=== PATIENT | male | born 1960 | race Caucasian/White ===

== ENCOUNTER 2017-06-01 06:52 | Outpatient (CLI) | payer OTHER ==
[2017-06-01] VITALS (12 sets, daily range): BP systolic 117–145; BP diastolic 75–98; PULSE 67–96; TEMP 97.3
[~2017-06-01] VITALS: Ht 188 cm; Wt 141.8 kg
[2017-06-01 07:34] LABS: HEMATOCRIT 39.6 % (42.0-52.0); HEMOGLOBIN 13.1 g/dl (13.5-18.0); MEAN CELL VOLUME 93 fl (80.0-100.0); MEAN CORPUSCULAR HEMOGLOBIN 31 pg (27.0-31.0); MEAN CORPUSCULAR HGB CONC 33 g/dl (33.0-37.0); MEAN PLATELET VOLUME 11.9 fl (7.4-10.4); PLATELET COUNT 126 K/mm3 (130-400); RED BLOOD COUNT 4.27 M/mm3 (4.20-5.60); REDCELL DISTRIBUTION WIDTH-CV 13.7 % (11.5-14.5); WHITE BLOOD COUNT 5.9 K/mm3 (4.8-10.8)
[2017-06-01] MEDS ORDERED: PRINIVIL40 MG PO ×2 (07:37→07:38)
[2017-06-01 07:38] LABS: PROTHROMBIN TIME 10.8 SECONDS (9.7-12.8)
[2017-06-01] MEDS ORDERED: ASPIRIN 81M81 MG/TA2 PO (07:38)
[2017-06-01 07:39] LABS: CALCIUM 9.1 mg/dL (8.4-10.2); CREATININE, serum 0.96 mg/dL (0.66-1.25); POTASSIUM 4.3 mmol/L (3.4-5.0)
[2017-06-01] MEDS ORDERED: BYSTOLIC10 MG PO (07:42)
[2017-06-01] MEDS ORDERED: CLARITIN D TAB1 TAB PO (07:45)
[2017-06-01] MEDS ORDERED: OSTEO-BI-FLEX 21 TAB PO (07:47)
[2017-06-01] MEDS ORDERED: CINNAMON BARK PO (07:47)
== END 2017-06-01 09:35 | disposition home or self-care (01) ==
LOC: COL.RAD 06:52
PROVIDERS: Internal Medicine Interventional Cardiology
DX: I71.2 Thoracic aortic aneurysm, without rupture (principal); I10 Essential (primary) hypertension; M79.604 Pain in right leg; F17.200 Nicotine dependence, unspecified, uncomplicated; M79.605 Pain in left leg; Z82.49 Family history of ischemic heart disease and other diseases of the circulatory system
CPT/HCPCS: J2250; J3010

== ENCOUNTER → 2017-10-08 | Outpatient (REF) ==
[~2017-10-08] MED LIST: ASPIRIN 81M81 MG/TA2 PO; BYSTOLIC10 MG PO; CINNAMON BARK PO; CLARITIN D TAB1 TAB PO; OSTEO-BI-FLEX 21 TAB PO; PRINIVIL40 MG PO
== END ==
LOC: ZLAB.WCH 18:16
DX: Z01.89 Encounter for other specified special examinations (principal)

== ENCOUNTER → 2017-10-15 | Outpatient (REF) | LOC: ZLAB.WCH 18:41 | DX: Z01.89 Encounter for other specified special examinations (principal) ==

== ENCOUNTER → 2017-10-22 | Outpatient (REF) | LOC: ZLAB.WCH 18:05 | DX: Z01.89 Encounter for other specified special examinations (principal) ==

== ENCOUNTER → 2017-10-29 | Outpatient (REF) | LOC: ZLAB.WCH 18:10 | DX: Z01.89 Encounter for other specified special examinations (principal) ==

== ENCOUNTER → 2017-11-05 | Outpatient (REF) | LOC: ZLAB.WCH 18:25 | DX: Z01.89 Encounter for other specified special examinations (principal) ==

== ENCOUNTER → 2017-11-12 | Outpatient (REF) ==
[~2017-11-12] MED LIST changes: +CEPHALEXIN500 M1 PO; +CLARITIN-D 10 M1 T24 PO; +RIFADIN300 MG
== END ==
LOC: ZLAB.WCH 18:18
DX: Z01.89 Encounter for other specified special examinations (principal)

== ENCOUNTER 2017-11-20 15:00 | Outpatient (RCR) | payer OTHER ==
[~2017-11-20 15:00] MED LIST changes: -CEPHALEXIN500 M1 PO; -CLARITIN-D 10 M1 T24 PO; -RIFADIN300 MG
[2017-11-21] MEDS ORDERED: CEPHALEXIN500 M1 PO (20:11)
[2017-11-21] MEDS ORDERED: RIFADIN300 MG (20:11)
[2017-11-21] MEDS ORDERED: ASPIRIN 81M81 MG/TA2 PO (20:11)
[2017-11-21] MEDS ORDERED: PRINIVIL40 MG PO (20:11)
[2017-11-21] MEDS ORDERED: CLARITIN-D 10 M1 T24 PO (20:12)
[2017-11-21] MEDS ORDERED: BYSTOLIC10 MG PO (20:12)
== END 2017-12-24 ==
LOC: MKS.ESL.PT
DX: Z47.1 Aftercare following joint replacement surgery (principal); M17.0 Bilateral primary osteoarthritis of knee; Z96.652 Presence of left artificial knee joint

== ENCOUNTER 2017-11-21 19:42 | Emergency (ER) | payer OTHER ==
[~2017-11-21] VITALS: Ht 188 cm; Wt 145.5 kg
[~2017-11-21 19:42] MED LIST changes: -CEPHALEXIN500 M1 PO; -CLARITIN-D 10 M1 T24 PO; -RIFADIN300 MG
[2017-11-21 19:44] VITALS: TEMP 96.8
[2017-11-21] MEDS ORDERED: PRINIVIL40 MG PO (20:11)
[2017-11-21] MEDS ORDERED: RIFADIN300 MG (20:11)
[2017-11-21] MEDS ORDERED: CEPHALEXIN500 M1 PO (20:11)
[2017-11-21] MEDS ORDERED: ASPIRIN 81M81 MG/TA2 PO (20:11)
[2017-11-21] MEDS ORDERED: BYSTOLIC10 MG PO (20:12)
[2017-11-21] MEDS ORDERED: CLARITIN-D 10 M1 T24 PO (20:12)
[2017-11-21 20:28] LABS: BASO % 0.5 % (0.0-2.0); EOS # 0.2 (0.0-0.7); EOS % 2.5 % (0-4.0); GRAN # 5.7 (1.4-6.5); GRAN % 66.5 % (42.2-75.2); HEMATOCRIT 38.6 % (42.0-52.0); HEMOGLOBIN 12.6 g/dl (13.5-18.0); LYMPH # 2.1 (1.2-3.4); LYMPH % 24.6 % (20.0-51.0); MEAN CELL VOLUME 88 fl (80.0-100.0); MEAN CORPUSCULAR HEMOGLOBIN 29 pg (27.0-31.0); MEAN CORPUSCULAR HGB CONC 33 g/dl (33.0-37.0); MEAN PLATELET VOLUME 11.8 fl (7.4-10.4); MONO # 0.5 (0.1-0.6); MONO % 5.7 % (1.7-9.3); PLATELET COUNT 169 K/mm3 (130-400); RED BLOOD COUNT 4.38 M/mm3 (4.20-5.60); REDCELL DISTRIBUTION WIDTH-CV 15.1 % (11.5-14.5)
[2017-11-21 21:04] LABS: ALANINE AMINOTRANSFERASE 51 U/L (21-72); ALBUMIN 4.2 gm/dL (3.5-5.0); ALKALINE PHOSPHATASE 101 U/L (50-136); ANION GAP 12 mmol/L (7-16); AST,SGOT 26 U/L (15-37); BILIRUBIN,TOTAL 0.3 mg/dL (0.0-1.0); BLOOD UREA NITROGEN 18 mg/dL (9-20); CALCIUM 8.9 mg/dL (8.4-10.2); CARBON DIOXIDE 24 mmol/L (22-30); CHLORIDE 105 mmol/L (98-107); CREATININE, serum 0.98 mg/dL (0.66-1.25); GLUCOSE 197 mg/dL (74-106); SODIUM 141 mmol/L (137-145); TOTAL PROTEIN 7.9 gm/dL (6.4-8.2)
[2017-11-21 21:21] LABS: TROPONIN-I < 0.012 ng/mL (0.000-0.034)
[2017-11-21 23:15] VITALS: BP 177/105; PULSE 136
== END 2017-11-21 23:15 | disposition short-term general hospital (02) ==
LOC: COL.ER 19:42
PROVIDERS: Emergency Medicine
DX: I26.09 Other pulmonary embolism with acute cor pulmonale (principal); I48.91 Unspecified atrial fibrillation
CPT/HCPCS: J1644; J7050

== ENCOUNTER → 2017-11-21 | Outpatient (CLI) | payer OTHER ==
[~2017-11-21] MED LIST changes: +CEPHALEXIN500 M1 PO; +CLARITIN-D 10 M1 T24 PO; +RIFADIN300 MG
== END ==
LOC: COL.RAD 18:27
DX: I26.99 Other pulmonary embolism without acute cor pulmonale (principal)
CPT/HCPCS: Q9967

== ENCOUNTER 2018-05-02 14:15 | Outpatient (RCR) | payer OTHER ==
[~2018-05-02 14:15] MED LIST changes: +CEPHALEXIN500 M1 PO; +CLARITIN-D 10 M1 T24 PO; +RIFADIN300 MG
== END 2018-05-06 | disposition home or self-care (01) ==
LOC: MKS.ESL.PT
DX: Z47.1 Aftercare following joint replacement surgery (principal); Z96.652 Presence of left artificial knee joint; Z86.711 Personal history of pulmonary embolism; Z79.01 Long term (current) use of anticoagulants; Z79.82 Long term (current) use of aspirin; Z79.899 Other long term (current) drug therapy

== ENCOUNTER → 2018-05-24 | Outpatient (CLI) | payer OTHER | LOC: COL.RAD 08:32 | DX: Z09 Encounter for follow-up examination after completed treatment for conditions other than malignant neoplasm (principal); Z86.711 Personal history of pulmonary embolism | CPT/HCPCS: Q9967 ==

== ENCOUNTER 2018-08-01 14:00 | Outpatient (RCR) | payer OTHER | END 2018-08-06 | disposition home or self-care (01) | LOC: MKS.ESL.PT | DX: Z47.1 Aftercare following joint replacement surgery (principal); Z96.652 Presence of left artificial knee joint ==

== ENCOUNTER 2018-11-01 14:30 | Outpatient (RCR) | payer OTHER | END 2018-12-05 | disposition home or self-care (01) | LOC: MKS.ESL.PT | DX: Z47.1 Aftercare following joint replacement surgery (principal); Z96.651 Presence of right artificial knee joint; Z96.652 Presence of left artificial knee joint; Z87.39 Personal history of other diseases of the musculoskeletal system and connective tissue; Z86.711 Personal history of pulmonary embolism ==

== ENCOUNTER 2019-11-12 08:26 | Outpatient (RCR) | payer OTHER | END 2020-02-10 | LOC: MKS.ESL.PT | DX: I89.0 Lymphedema, not elsewhere classified (principal); M97.8XXD Periprosthetic fracture around other internal prosthetic joint, subsequent encounter; Z96.659 Presence of unspecified artificial knee joint; Z96.651 Presence of right artificial knee joint ==

== ENCOUNTER 2020-06-25 13:30 | Outpatient (RCR) | payer OTHER | END 2020-08-23 | disposition home or self-care (01) | LOC: WSOH | DX: Z48.02 Encounter for removal of sutures (principal); S71.112D Laceration without foreign body, left thigh, subsequent encounter; F17.210 Nicotine dependence, cigarettes, uncomplicated; E11.9 Type 2 diabetes mellitus without complications; M54.5 Low back pain; I10 Essential (primary) hypertension; Z94.5 Skin transplant status; Z98.890 Other specified postprocedural states; Z96.653 Presence of artificial knee joint, bilateral; Z95.5 Presence of coronary angioplasty implant and graft; Y99.0 Civilian activity done for income or pay ==

== ENCOUNTER 2020-10-07 12:12 | Day surgery (SDC) | payer OTHER ==
[~2020-10-07] VITALS: Ht 188 cm; Wt 161.9 kg
[2020-10-07] MEDS ORDERED: PACERONE400 MG PO (12:51)
[2020-10-07] MEDS ORDERED: LASIX 40MG TABL40 MG PO (12:51)
[2020-10-07 12:53] VITALS: BP 130/113; PULSE 117; TEMP 97.8
[2020-10-07] MEDS ORDERED: CEPHALEXIN500 M1 PO (13:35)
[2020-10-07] MEDS ORDERED: ZESTRIL40 MG PO (13:36)
[2020-10-07] MEDS ORDERED: APRESOLINE50 MG PO (13:36)
[2020-10-07] MEDS ORDERED: ZOLOFT 50MG50 MG PO (13:37)
[2020-10-07] MEDS ORDERED: CLARITIN-D 10 M1 T24 PO (13:37)
[2020-10-07] MEDS ORDERED: ELIQUIS 5MG PO (13:37)
[2020-10-07] MEDS ORDERED: TYLENOL 8 HR PO (13:38)
[2020-10-07] MEDS ORDERED: GLUCOPHAGE500 MG/TAB PO (13:38)
[2020-10-07 13:49] LABS: POTASSIUM 4.3 mmol/L (3.4-5.0)
[2020-10-07 13:59] LABS: INR 1.2 (0.8-3.0); PROTHROMBIN TIME 13.2 SECONDS (9.7-12.8)
[2020-10-07 14:23] LABS: THYROID STIMULATING HORMONE 8.66 uIU/mL (0.465-4.680)
[2020-10-07 16:35] VITALS: BP 95/66; PULSE 83
[2020-10-07 16:50] VITALS: BP 114/63; PULSE 84
[2020-10-07 17:05] VITALS: BP 102/80; PULSE 94
--- NOTE | 2020-10-07 17:13 | NUR ---
Pt tolerating PO without issue. Ambulates in room with steady gait. has been called, pt will be taken to her car by wheelchair when she arrives. INT DC'd with catheter intact, bleeding controlled at site.
--- NOTE | 2020-10-07 17:27 | NUR ---
Pt taken by WC to 's car with personal belongings.
== END 2020-10-07 17:29 | disposition home or self-care (01) ==
LOC: COL.CAR 12:12
PROVIDERS: Internal Medicine Interventional Cardiology
DX: I48.0 Paroxysmal atrial fibrillation (principal); I10 Essential (primary) hypertension; R60.0 Localized edema; E11.9 Type 2 diabetes mellitus without complications; F17.210 Nicotine dependence, cigarettes, uncomplicated; M19.90 Unspecified osteoarthritis, unspecified site; F41.9 Anxiety disorder, unspecified; Z86.711 Personal history of pulmonary embolism; Z79.01 Long term (current) use of anticoagulants; Z79.84 Long term (current) use of oral hypoglycemic drugs; Z88.0 Allergy status to penicillin; Z96.653 Presence of artificial knee joint, bilateral
CPT/HCPCS: J2704; J7030

== ENCOUNTER 2020-12-03 07:31 | Day surgery (SDC) | payer OTHER ==
[~2020-12-03] VITALS: Ht 188.1 cm; Wt 152.3 kg
[~2020-12-03 07:31] MED LIST changes: +APRESOLINE50 MG PO; +ELIQUIS 5MG PO; +GLUCOPHAGE500 MG/TAB PO; +LASIX 40MG TABL40 MG PO; +PACERONE200 MG PO; +TYLENOL 8 HR PO; +ZESTRIL40 MG PO; +ZOLOFT 50MG50 MG PO
[2020-12-03 08:28] VITALS: BP 102/81; PULSE 104; TEMP 97.8
[2020-12-03 08:39] LABS: POTASSIUM 4.6 mmol/L (3.4-5.0)
[2020-12-03 08:40] LABS: INR 1.2 (0.8-3.0); PROTHROMBIN TIME 13.5 SECONDS (9.7-12.8)
[2020-12-03 09:45] VITALS: BP 100/64; PULSE 79
[2020-12-03 10:00] VITALS: BP 118/90; PULSE 77
[2020-12-03 10:15] VITALS: BP 110/74; PULSE 78
[2020-12-03 10:30] VITALS: BP 108/82; PULSE 80
[2020-12-03 10:45] VITALS: BP 121/90; PULSE 76
--- NOTE | 2020-12-03 11:00 | NUR ---
DC instructions were reviewed with pt, he expressed understanding. He has tolereated PO fluids without issue. He ambulated through rowley to restroom with steady gait, stating shortness of breath with activity is now much improved. IV DC'd with catheter intact. Pt was taken to 's car by wheelchair.
== END 2020-12-03 11:57 | disposition home or self-care (01) ==
LOC: COL.CAR
PROVIDERS: Internal Medicine Interventional Cardiology
DX: I48.92 Unspecified atrial flutter (principal); I48.0 Paroxysmal atrial fibrillation; G47.30 Sleep apnea, unspecified; I10 Essential (primary) hypertension; R60.0 Localized edema; E11.9 Type 2 diabetes mellitus without complications; I26.99 Other pulmonary embolism without acute cor pulmonale; F19.10 Other psychoactive substance abuse, uncomplicated; Z87.798 Personal history of other (corrected) congenital malformations; Z80.9 Family history of malignant neoplasm, unspecified; Z88.0 Allergy status to penicillin; Z79.84 Long term (current) use of oral hypoglycemic drugs; Z79.899 Other long term (current) drug therapy; Z79.01 Long term (current) use of anticoagulants
CPT/HCPCS: J2704

== ENCOUNTER 2021-01-05 07:09 | Day surgery (SDC) | payer OTHER ==
[~2021-01-05] VITALS: Ht 188 cm; Wt 151.2 kg
[2021-01-05] VITALS (7 sets, daily range): BP systolic 101–137; BP diastolic 55–117; PULSE 79–123; TEMP 97.7
[2021-01-05 07:59] LABS: POTASSIUM 4.1 mmol/L (3.4-5.0)
[2021-01-05 08:00] LABS: INR 1.3 (0.8-3.0); PROTHROMBIN TIME 14.3 SECONDS (9.7-12.8)
[2021-01-05 08:34] LABS: THYROID STIMULATING HORMONE 3.84 uIU/mL (0.465-4.680)
[2021-01-05] MEDS ORDERED: LEVEMIR100 U/ML SQ (08:35)
--- NOTE | 2021-01-05 09:47 | NUR ---
Report from Jina Nguyen.
--- NOTE | 2021-01-05 11:09 | NUR ---
Discharge instructions given to pt.Pt verbalizes understanding.INT removed,catheter tip intact.Pt escorted out via wheelchair by this nurse.
== END 2021-01-05 11:15 | disposition home or self-care (01) ==
LOC: COL.CAR 07:09
PROVIDERS: Internal Medicine Cardiovascular Disease
DX: I48.0 Paroxysmal atrial fibrillation (principal); R60.0 Localized edema; I50.30 Unspecified diastolic (congestive) heart failure; I87.1 Compression of vein; I11.0 Hypertensive heart disease with heart failure; I26.99 Other pulmonary embolism without acute cor pulmonale; M19.90 Unspecified osteoarthritis, unspecified site; E11.9 Type 2 diabetes mellitus without complications; Z86.718 Personal history of other venous thrombosis and embolism; Z79.899 Other long term (current) drug therapy; Z79.01 Long term (current) use of anticoagulants; Z79.84 Long term (current) use of oral hypoglycemic drugs; Z96.651 Presence of right artificial knee joint; Z88.0 Allergy status to penicillin
CPT/HCPCS: J2704; J7030

== ENCOUNTER → 2023-07-10 | Outpatient (CLI) | payer OTHER ==
[~2023-07-10] MED LIST changes: +LEVEMIR100 U/ML SQ
== END ==
LOC: CANSCHCLI → COL.RAD 07:41
DX: M51.36 Other intervertebral disc degeneration, lumbar region (principal); M48.061 Spinal stenosis, lumbar region without neurogenic claudication; M48.07 Spinal stenosis, lumbosacral region

== ENCOUNTER 2023-12-27 13:45 | Outpatient (RCR) | payer OTHER | END 2023-12-30 | disposition home or self-care (01) | LOC: MKS.ESL.PT | DX: M25.552 Pain in left hip (principal); Z96.642 Presence of left artificial hip joint ==